=== PATIENT | female | born 1945 | race Caucasian/White ===

== ENCOUNTER 2017-10-20 18:45 | Emergency (ER) | payer OTHER, BC ==
[~2017-10-20] VITALS: Ht 149.9 cm; Wt 80.4 kg
[~2017-10-20 18:45] MED LIST: ADULT LOW DOSE81 M1 PO; AMOX TR-K CLV1 EAC4 PO; Bystolic PO; CLOPIDOGREL75 MG PO; CRESTOR40 MG PO; Flagyl PO; LOPRESSOR25 MG PO; PRENATAL PLUS1 EAC3 PO
[2017-10-20 21:47] VITALS: BP 175/82
== END 2017-10-20 21:48 | disposition home or self-care (01) ==
LOC: EME 18:45
DX: F32.9 Major depressive disorder, single episode, unspecified (principal); J45.909 Unspecified asthma, uncomplicated; I10 Essential (primary) hypertension; G43.909 Migraine, unspecified, not intractable, without status migrainosus; K21.9 Gastro-esophageal reflux disease without esophagitis; F41.9 Anxiety disorder, unspecified; Z87.891 Personal history of nicotine dependence; Z79.82 Long term (current) use of aspirin; Z88.5 Allergy status to narcotic agent; Z88.8 Allergy status to other drugs, medicaments and biological substances
CPT/HCPCS: 80048; 81003; 85027; 87086; 90839; 99281; 99284; G0480